=== PATIENT | male | born 1955 | race Caucasian/White ===

== ENCOUNTER 2018-11-29 14:55 | Emergency (ER) | payer OTHER ==
[~2018-11-29] VITALS: Ht 185.4 cm; Wt 95.3 kg
[2018-11-29 15:21] VITALS: BP 142/80
--- NOTE | 2018-11-29 16:28 | RAD ---
Indication: Fall right-sided pain to the anterior ribs. TECHNIQUE: PA chest and 4 views of the right ribs COMPARISON: None FINDINGS: Heart is normal in size. Lungs are clear. No pneumothorax or pleural effusion. No acute fractures seen. IMPRESSION: No acute findings. Electronically signed by: Blayne Carias DO (11/29/2018 4:25 PM) [facility]
--- NOTE | 2018-11-29 16:29 | RAD ---
Indication: Fall with right-sided neck pain TECHNIQUE: 3 views of the cervical spine COMPARISON: None FINDINGS: Loss of normal cervical lordosis. This could be due to muscle spasm or positioning. Atlantoaxial joint interval is preserved. Prevertebral soft tissues within normal limits. Intervertebral disc space narrowing at C5-6 with osteophyte formation. Multilevel mild facet arthropathy. No compression deformities. Lung apices are clear. IMPRESSION: Degenerative disc disease at C5-C6. No acute findings. Electronically signed by: Blayne Carias DO (11/29/2018 4:26 PM) [facility]
--- NOTE | 2018-11-29 16:46 | PHYS DOC ---
Past Medical History Past Medical History: No Pertinent History Past Surgical History: No Surgical History Alcohol Use: None Drug Use: None Adult General Chief Complaint Chief Complaint: RIB PAIN [facility] HPI Patient is a 63 year old male with no significant medical history who presents to the ED today complaining of 2 out of 10 right lateral rib pain as well as left lateral neck pain that began prior to coming to the ED after falling. Patient states he was on a 4 foot ladder when it tipped over and fell on the right side. Patient denies any loss of consciousness. Denies hitting his head on the ground. He states his pain to the ribs is worse when he takes a deep breath and pain to the neck only when he makes certain neck movements. Patient denies taking anything for his pain. Patient is not on any anticoagulants. Review of Systems Review of Systems Constitutional: Denies fever or chills [] Eyes: Denies change in visual acuity, redness, or eye pain [] HENT: Denies nasal congestion or sore throat [] Respiratory: Reports right rib pain. Denies cough or shortness of breath [] Cardiovascular: No additional information not addressed in HPI [] GI: Denies abdominal pain, nausea, vomiting, bloody stools or diarrhea [] : Denies dysuria or hematuria [] Musculoskeletal: Reports left lateral neck pain Integument: Denies rash or skin lesions [] Neurologic: Denies headache, focal weakness or sensory changes [] All other systems were reviewed and found to be within normal limits, except as documented in this note. Allergies Allergies Allergies Coded Allergies Type Severity Reaction Last Updated Verified No Known Drug Allergies 11/29/18 No Physical Exam Physical Exam Constitutional: Well developed, well nourished, no acute distress, non-toxic appearance. [] HENT: Normocephalic, atraumatic, bilateral external ears normal, oropharynx moist, no oral exudates, nose normal. [] Eyes: PERRLA, EOMI, conjunctiva normal, no discharge. [] Neck: Normal range of motion, supple, no stridor. Diffuse paraspinal muscle tenderness on palpation of the left lateral cervical spine, no midline cervical spine tenderness Cardiovascular:Heart rate regular rhythm, no murmur [] Lungs & Thorax: Bilateral breath sounds clear to auscultation, tenderness on palpation of the right lateral ribs mid axillary line approximately ribs 78 and 9. [] Abdomen: Bowel sounds normal, soft, no tenderness, no masses, no pulsatile masses. [] Skin: Warm, dry, no erythema, no rash. [] Back: No tenderness, no CVA tenderness. [] Extremities: No tenderness, no cyanosis, no clubbing, ROM intact, no edema. [] Neurologic: Alert and oriented X 3, normal motor function, normal sensory function, no focal deficits noted. [] Psychologic: Affect normal, judgement normal, mood normal. [] Current Patient Data Vital Signs Vital Signs Date Time Temp Pulse Resp B/P (MAP) Pulse Ox O2 Delivery O2 Flow Rate FiO2 11/29/18 15:21 98.2 77 18 142/80 (100) 95 Room Air 98.2 EKG EKG [] Radiology/Procedures Radiology/Procedures [] Course & Med Decision Making Course & Med Decision Making Pertinent Labs and Imaging studies reviewed. (See chart for details) This is a 63-year-old male patient presenting to the ED today would rebound neck pain status post falling. No loss of consciousness. Cervical spine x-rays, right rib x-rays including PA chest are negative for any acute findings. Ice elevation recommended. OTC pain relievers. Follow-up with PCP in 1-2 weeks. Dragon Disclaimer Dragon Disclaimer This electronic medical record was generated, in whole or in part, using a voice recognition dictation system. Departure Departure Impression: Primary Impression: Fall from height of greater than 3 feet Additional Impressions: Contusion of rib on right side Acute cervical myofascial strain Disposition: 01 HOME, SELF-CARE Condition: STABLE Referrals: UNKNOWN PCP NAME (PCP) follow up in 1-2 weeks with your doctor Patient Instructions: Cervical Strain and Sprain with [facility]hab[facility], Contusion, [id number], Fall Prevention and Home Safety Additional Instructions: You were evaluated in the emergency room for right rib contusion and cervical strains after falling. Your x-rays of the cervical spine and chest were negative for any acute findings. Try to ice and elevate the affected areas. Take [id number] medications as needed for pain. Problem Qualifiers Additional Impressions: Contusion of rib on right side Encounter type: initial encounter Qualified Codes: S20.211A - Contusion of right front wall of thorax, initial encounter Acute cervical myofascial strain Encounter type: initial encounter Qualified Codes: S16.1XXA - Strain of muscle, fascia and tendon at neck level, initial encounter ROSIENATACHA LLANES Nov 29, 2018 16:46
== END 2018-11-29 17:12 | disposition home or self-care (01) ==
LOC: ER 14:55
DX: S16.1XXA Strain of muscle, fascia and tendon at neck level, initial encounter (principal); S20.211A Contusion of right front wall of thorax, initial encounter; W11.XXXA Fall on and from ladder, initial encounter; Y93.89 Activity, other specified; Y92.89 Other specified places as the place of occurrence of the external cause; Y99.8 Other external cause status
CPT/HCPCS: 71101; 72040; 99283